=== PATIENT | female | born 1960 | race Caucasian/White ===

== ENCOUNTER 2016-06-14 09:25 | Day surgery (SDC) | payer OTHER ==
[2016-06-14] VITALS (13 sets, daily range): BP systolic 102–147; BP diastolic 59–77; PULSE 62–84; RESP 17–28; Ht 167.6 cm; Wt 78.0 kg
[~2016-06-14] VITALS: Ht 167.6 cm; Wt 78.0 kg
[~2016-06-14 09:25] MED LIST: BUPR150T6 PO; CIPR500T4 PO; IBUP-1542 PO; LEVO112T2 PO; OMEP40CA6 PO; OXYB5TAB7 PO; SUCCINYLCHOLINE CHLORIDE 100 MG/5 ML SYG IV ONE; TOPI25CA2 PO; TRAZ100T15 PO
[2016-06-14] MEDS ORDERED: SOD CHLORIDE 0.9% 1,000 ML IV ONE (10:00)
[2016-06-14] MEDS ORDERED: CEFAZOLIN 2 GM/50 ML (PMX) 50 ML IVPB ONE (10:00)
[2016-06-14] MEDS ORDERED: RANI150C11 PO (10:13)
[2016-06-14] MEDS ORDERED: ALBU8.5H3 INH (10:13)
[2016-06-14] MEDS ORDERED: CALC-143 PO (10:13)
[2016-06-14] MEDS ORDERED: ALBU2.5V3 NEB (10:13)
[2016-06-14] MEDS ORDERED: BUPIVACAINE 0.25% (MPF) 30 ML INJ ONE (11:48)
[2016-06-14] MEDS ORDERED: FENTAnyl 50 MCG/ML VIAL ONE (12:05)
[2016-06-14] MEDS ORDERED: PROPOFOL 40 ML ONE (12:31)
[2016-06-14] MEDS ORDERED: GLYCOPYRROLATE 0.4 MG INJ ONE (12:31)
[2016-06-14] MEDS ORDERED: SUCCINYLCHOLINE CHLORIDE 100 MG/5 ML SYG IV ONE (12:31)
[2016-06-14] MEDS ORDERED: NEOSTIGMINE 3 MG/3 ML SYRINGE ONE (12:31)
[2016-06-14] MEDS ORDERED: LIDOCAINE 2% (SDV) 5 ML INJ ONE (12:31)
[2016-06-14] MEDS ORDERED: CEFAZOLIN 1 GM INJ ONE (12:31)
[2016-06-14] MEDS ORDERED: ROCURONIUM 50 MG INJ ONE (12:31)
[2016-06-14] MEDS ORDERED: METOCLOPRAMIDE 10 MG INJ IV PRN (13:00)
[2016-06-14] MEDS ORDERED: ONDANSETRON 4 MG INJ IV PRN (13:00)
[2016-06-14] MEDS ORDERED: OXYCODONE/ACETAMINOPHEN (5/325) TAB PO PRN (13:00)
[2016-06-14] MEDS ORDERED: IBUPROFEN 800 MG TAB PO ONE (13:00)
[2016-06-14] MEDS ORDERED: MEPERIDINE 25 MG INJ IV PRN (13:00)
[2016-06-14] MEDS ORDERED: DIPHENHYDRAMINE 50 MG INJ IV PRN (13:00)
[2016-06-14] MEDS ORDERED: FENTAnyl 50 MCG/ML VIAL IV PRN ×2 (13:00)
[2016-06-14] MEDS ORDERED: HYDROmorphONE (0.2 MG/ML) 10ML SYG IV PRN ×3 (13:00)
--- NOTE | 2016-06-14 13:22 | OPR ---
DATE OF OPERATION: 06/14/2016 INDICATION: This is a 56-year-old female with symptomatic gallstones. She requests surgical repair . Risks, alternatives, benefits, and personnel were discussed with the patient. The patient expres sed understanding and consents to the operation. PREOPERATIVE DIAGNOSIS: Symptomatic gallstones. POSTOPERATIVE DIAGNOSIS: Symptomatic gallstones. OPERATION: Laparoscopic cholecystectomy. SURGEON: Edward Angel MD SITE INTERPRETER: Nba Maxwell MD SPECIMENS: Gallbladder. COMPLICATIONS: None. ANESTHESIA: General. PROCEDURE: The patient was taken to the OR and prepped and draped in usual sterile fashion. Surgic al timeout was performed. IV antibiotics were given. Infraumbilical incision was made with a 15 bl cailin. Dissection cautery carried down to the fascia and divided with curved Bush scissors. An 0 Sajan ryl U-stitch was placed into the fascia. Blunt Shyla trocar was used. Pneumoperitoneum was establ ished. Midepigastric 12 mm optical trocar and right upper quadrant and right upper flank, a 5 mm op tical trocar was placed under direct visualization. Upon initial inspection, there were some adhesi ons to the liver which were taken down bluntly, adhesions to the gallbladder which were also taken d own bluntly and with cautery. The cystic duct was identified. The critical view was established. The cystic duct was divided using a 35 mm [place] vascular load stapler. The cystic artery was divi ded using a 35 mm [place] vascular load stapler. The gallbladder was taken off the gallbladder bed. There was good hemostasis. Gallbladder was retrieved using EndoCatch bag. Ports were removed und er direct visualization, 0 Vicryl U-stitch was tied down. Skin was closed using skin ryan. Loca l anesthesia was injected. Dry dressing was applied. Dictated By: EDWARD EDWARD/VICTORIA Conf#: [id number] DID#: [id number]
[2016-06-14] MEDS ORDERED: OXYCODONE/ACETAMINOPHEN (5/325) TAB PO ONE (14:30)
== END 2016-06-14 14:45 | disposition home or self-care (01) ==
LOC: SDS 09:25
PROVIDERS: ATTEND Surgery
DX: K80.10 Calculus of gallbladder with chronic cholecystitis without obstruction (principal); F17.210 Nicotine dependence, cigarettes, uncomplicated; E03.9 Hypothyroidism, unspecified; J44.9 Chronic obstructive pulmonary disease, unspecified
CPT/HCPCS: 47562; 88304; J0330; J0690; J2175; J2405; J3010; Z7512; Z7610; J1170; J2710